=== PATIENT | female | born 1950 | race Caucasian/White ===

== ENCOUNTER 2023-06-18 20:51 | Inpatient (IN) | payer MEDICARE, BC ==
[~2023-06-18] VITALS: Ht 170.2 cm; Wt 77.6 kg
[2023-06-18] MEDS ORDERED: LIDOCAINE 1%-EPI 1:100,000 20 ML VIAL ONE (22:04)
[2023-06-18] MEDS ORDERED: TDAP [DIPH/PERTUSSIS/TET] 0.5 ML VIAL IM ONE (22:30)
[2023-06-18] MEDS ORDERED: AMOX/CLAVULANATE 875 MG TABLET PO ONE (22:30)
[2023-06-18 22:43] LABS: BASOPHILS # (AUTO) 0.1 K/uL (0.0-0.2); BASOPHILS % (AUTO) 0.8 % (0.0-2.0); EOSINOPHILS # (AUTO) 0.1 K/uL (0.0-0.7); EOSINOPHILS % (AUTO) 0.6 % (0.0-6.0); HEMATOCRIT 39 % (33-45); HEMOGLOBIN 13.4 g/dL (11.5-14.8); LYMPHOCYTES # (AUTO) 2.1 K/uL (0.8-4.8); LYMPHOCYTES % (AUTO) 15.8 % (20.0-44.0); MEAN CORPUSCULAR HEMOGLOBIN 33 PG (26.0-33.0); MEAN CORPUSCULAR HGB CONC 34 g/dl (31.0-36.0); MEAN CORPUSCULAR VOLUME 97 fL (82-100); MONOCYTES # (AUTO) 0.9 K/uL (0.1-1.30); MONOCYTES % (AUTO) 6.5 % (2.0-12.0); NEUTROPHILS # (AUTO) 10.1 K/uL (1.8-8.9); NEUTROPHILS % (AUTO) 76.3 % (43.0-81.0); PLATELET COUNT (AUTO) 262 K/uL (150-450); RED BLOOD CELL COUNT(AUTO) 4.05 MIL/uL (4.0-5.2); RED CELL DISTRIBUTION WIDTH 13.9 % (11.5-15.0); WHITE BLOOD COUNT (AUTO) 13.3 K/uL (4.3-11.0)
[2023-06-18 22:55] LABS: PARTIAL THROMBOPLASTIN TIME 28.7 SEC (24.3-34.3); PROTHROMBIN TIME 10.6 SECS (9.2-11.1)
[2023-06-18 22:57] LABS: CALCIUM, SERUM 9.1 mg/dL (8.5-10.1); CARBON DIOXIDE 22 mmol/L (21-32); CHLORIDE 92 mmol/L (98-107); CREATININE 0.7 mg/dL (0.6-1.3); GLUCOSE 102 mg/dL (74-106); POTASSIUM 3.7 mmol/L (3.5-5.1); SODIUM SERUM 125 mmol/L (136-145); UREA NITROGEN, BLOOD 8 mg/dL (7-18)
[2023-06-18] MEDS ORDERED: ACETAMINOPHEN ES 500 MG TABLET ONE (23:58)
[2023-06-19] VITALS (18 sets, daily range): BP systolic 98–140; BP diastolic 48–88; TEMP 97.7–98.1; O2SAT 96–100
[2023-06-19] MEDS ORDERED: ACETAMINOPHEN ES 500 MG TABLET PO ONE
[2023-06-19] MEDS ORDERED: ONDANSETRON HCL/PF 4 MG/2 ML VIAL IVP PRN (00:30)
[2023-06-19] MEDS ORDERED: ACETAMINOPHEN 325 MG TABLET PO PRN (00:30)
[2023-06-19] MEDS ORDERED: MAGNESIUM HYDROXIDE 30 ML UDC PO PRN (00:30)
[2023-06-19] MEDS ORDERED: Z GUARD REMEDY 4 OZ OINT TP PRN (00:30)
[2023-06-19] MEDS: IV NS 0.9% 1,000 ML IV PRN ×2 (00:51→15:08)
[2023-06-19] MEDS ORDERED: HYDROCODONE/APAP 5/325MG TABLET PO ONE (01:30)
[2023-06-19] MEDS ORDERED: ASPI-1169 PO (08:18)
[2023-06-19] MEDS ORDERED: METH2.5T PO (08:18)
[2023-06-19] MEDS ORDERED: ADAL40PE SQ (08:18)
[2023-06-19] MEDS ORDERED: METO25TA4 PO (08:18)
[2023-06-19] MEDS ORDERED: OLME5TAB6 PO (08:18)
[2023-06-19] MEDS ORDERED: ATOR20TA PO (08:18)
[2023-06-19] MEDS ORDERED: UMEC1BLS IH (08:18)
[2023-06-19] MEDS ORDERED: LEVO112T5 PO (08:18)
[2023-06-19] MEDS: PANTOPRAZOLE 40 MG TABLET.DR PO SCH (08:25)
[2023-06-19 08:50] LABS: BASOPHILS # (AUTO) 0.1 K/uL (0.0-0.2); BASOPHILS % (AUTO) 0.8 % (0.0-2.0); EOSINOPHILS # (AUTO) 0.1 K/uL (0.0-0.7); EOSINOPHILS % (AUTO) 1.2 % (0.0-6.0); HEMATOCRIT 37 % (33-45); HEMOGLOBIN 12.3 g/dL (11.5-14.8); LYMPHOCYTES # (AUTO) 1.9 K/uL (0.8-4.8); LYMPHOCYTES % (AUTO) 27.7 % (20.0-44.0); MEAN CORPUSCULAR HEMOGLOBIN 33 PG (26.0-33.0); MEAN CORPUSCULAR HGB CONC 34 g/dl (31.0-36.0); MEAN CORPUSCULAR VOLUME 98 fL (82-100); MONOCYTES # (AUTO) 0.6 K/uL (0.1-1.30); MONOCYTES % (AUTO) 8.8 % (2.0-12.0); NEUTROPHILS # (AUTO) 4.2 K/uL (1.8-8.9); NEUTROPHILS % (AUTO) 61.5 % (43.0-81.0); PLATELET COUNT (AUTO) 196 K/uL (150-450); RED BLOOD CELL COUNT(AUTO) 3.74 MIL/uL (4.0-5.2); RED CELL DISTRIBUTION WIDTH 13.9 % (11.5-15.0); WHITE BLOOD COUNT (AUTO) 6.8 K/uL (4.3-11.0)
[2023-06-19 08:57] LABS: CALCIUM, SERUM 8.9 mg/dL (8.5-10.1); CREATININE 0.6 mg/dL (0.6-1.3); POTASSIUM 3.8 mmol/L (3.5-5.1)
[2023-06-19 11:56] LABS: APPEARANCE,URINE CLEAR (CLEAR); BILIRUBIN,URINE NEGATIVE (NEGATIVE); BLOOD, URINE 1+ Ery/uL (NEGATIVE); COLOR,URINE YELLOW (YELLOW); KETONES,URINE NEGATIVE (NEGATIVE); LEUKOCYTE ESTERASE ,URINE NEGATIVE (NEGATIVE); NITRITE, URINE NEGATIVE (NEGATIVE); PH,URINE 6.5 (5.0-8.0); PROTEIN,URINE NEGATIVE (NEGATIVE); UGLUCOSE NEGATIVE (NEGATIVE); UROBILINOGEN,URINE 0.2 EU/dL (0.2)
[2023-06-19 11:58] LABS: ADD URINE CULTURE NO; BACTERIA,URINE Rare /HPF (None Seen); SQUAMOUS EPITHELIAL CELL,UR Rare /HPF (None Seen); WBC,URINE 0-2 /HPF (0-3)
[2023-06-19 12:02] LABS: URINE SODIUM, RANDOM 51 mmol/l (40-220)
[2023-06-19] MEDS: ACETAMINOPHEN 325 MG TABLET PO PRN ×2 (15:10→20:37)
[2023-06-19 22:32] LABS: OSMOLALITY,URINE 246 mOS/kg (340-1090)
[2023-06-20] MEDS: ACETAMINOPHEN 325 MG TABLET PO PRN ×2 (01:58→08:10)
[2023-06-20] MEDS: IV NS 0.9% 1,000 ML IV PRN (03:51)
[2023-06-20 03:59] VITALS: BP 136/63; TEMP 98.2; O2SAT 95
[2023-06-20 06:11] LABS: CALCIUM, SERUM 8.2 mg/dL (8.5-10.1); CARBON DIOXIDE 27 mmol/L (21-32); CHLORIDE 100 mmol/L (98-107); CREATININE 0.6 mg/dL (0.6-1.3); GLUCOSE 106 mg/dL (74-106); MAGNESIUM 2.1 mg/dL (1.8-2.4); PHOSPHORUS 2.9 mg/dL (2.5-4.9); POTASSIUM 3.5 mmol/L (3.5-5.1); SODIUM SERUM 133 mmol/L (136-145); UREA NITROGEN, BLOOD 8 mg/dL (7-18)
[2023-06-20 07:30] VITALS: BP 142/71; TEMP 97.3; O2SAT 100
[2023-06-20] MEDS: PANTOPRAZOLE 40 MG TABLET.DR PO SCH (08:07)
[2023-06-20 08:57] LABS: URIC ACID 2.7 mg/dL (2.6-7.2)
[2023-06-20] MEDS ORDERED: INFLUENZA VACCINE 2023-24 0.5 ML DISP.SYRIN IM ONE (11:10)
[2023-06-20 12:27] LABS: THYROID STIMULATING HORMONE 2.989 uIU/mL (0.358-3.74)
== END 2023-06-20 12:15 | disposition home or self-care (01) | DRG 86 ==
LOC: ER 20:57 → ICU 23:28 → TELE 06-19 15:23
PROVIDERS: ADMIT Nurse Practitioner Family; ATTEND Internal Medicine
DX: S06.5X0A Traumatic subdural hemorrhage without loss of consciousness, initial encounter (principal); E22.2 Syndrome of inappropriate secretion of antidiuretic hormone; R40.2362 Coma scale, best motor response, obeys commands, at arrival to emergency department; R40.2142 Coma scale, eyes open, spontaneous, at arrival to emergency department; R40.2252 Coma scale, best verbal response, oriented, at arrival to emergency department; W19.XXXA Unspecified fall, initial encounter; S01.01XA Laceration without foreign body of scalp, initial encounter; S02.2XXA Fracture of nasal bones, initial encounter for closed fracture; W01.0XXA Fall on same level from slipping, tripping and stumbling without subsequent striking against object, initial encounter; Z79.82 Long term (current) use of aspirin; Z96.651 Presence of right artificial knee joint; E78.5 Hyperlipidemia, unspecified; I10 Essential (primary) hypertension; J44.9 Chronic obstructive pulmonary disease, unspecified; M06.9 Rheumatoid arthritis, unspecified; Y93.9 Activity, unspecified; Z95.3 Presence of xenogenic heart valve; Y92.009 Unspecified place in unspecified non-institutional (private) residence as the place of occurrence of the external cause
CPT/HCPCS: 36415; 70450-TC; 70486-TC; 73562; 80048-TC; 81001; 83735-TC; 83935-TC; 84100-TC; 84300-TC; 84443-TC; 84550-TC; 85025-TC; 85730-TC; 86850-TC; 90715; 97110-TC; 97116-TC; 97530-TC; A4223; G0378; J3490; J7030; Q2036